=== PATIENT | male | born 1960 | race Caucasian/White ===

== ENCOUNTER 2016-11-18 09:59 | Day surgery (SDC) | payer BC ==
[2016-11-17 12:26] VITALS: BMI 31.6
[2016-11-18] MEDS ORDERED: ceFAZolin 2 GRAM PREMIX BAG IVPB ONE (11:00)
[2016-11-18] MEDS ORDERED: PROPOFOL 20 ML ONE ×4 (11:35)
[2016-11-18] MEDS ORDERED: LIDOCAINE HCL/PF 1% SDV 5ML VIAL ONE (11:35)
[2016-11-18 12:36] VITALS: TEMP 98.1
[2016-11-18 13:55] VITALS: BP 128/66; PULSE 58
--- NOTE | 2016-11-21 13:52 | PATH ---
Surgical Pathology Report Patient Name: LITTLE SPRINGER [facility] Rec. #: [id number] /Age/Gender: 1960 (Age: 56) / M Account: [id number] Location: U-ENDOSCOPY Taken: 11/18/2016 Received: 11/18/2016 Reported: 11/21/2016 Physicians: Gunnar Wei M.D. Specimen(s) Received A: BX OF FUNDUS & BODY B: BX ANTRUM C: BX DISTAL ESOPHAGUS D: BX RIGHT COLON POLYP E: BX DESCENDING COLON POLYP F: BX SIGMOID COLON POLYP Clinical History Anemia, screening Gastritis, duodenal ulcer, diverticulosis, lipoma transverse colon, colon polyp Final Diagnosis A. STOMACH, FUNDUS AND BODY, BIOPSY: GASTRIC OXYNTIC MUCOSA WITH FOCALLY ACTIVE MODERATE CHRONIC GASTRITIS. IMMUNOSTAIN FOR H. PYLORI IS POSITIVE FOR ORGANISMS (RARE ORGANISMS). B. STOMACH, ANTRUM, POLYP, BIOPSY: POLYPOID FRAGMENT OF GASTRIC ANTRAL MUCOSA WITH ACTIVE MARKED CHRONIC GASTRITIS AND HYPERPLASTIC CHANGE CONSISTENT WITH HYPERPLASTIC POLYP. NEGATIVE FOR DYSPLASIA. IMMUNOSTAIN FOR H. PYLORI IS POSITIVE FOR ORGANISMS (SCATTERED ORGANISMS). C. ESOPHAGUS, DISTAL, BIOPSY: SQUAMOUS EPITHELIUM WITH CHRONIC INFLAMMATION AND REFLUX TYPE CHANGES NO COLUMNAR EPITHELIUM PRESENT (NO INTESTINAL METAPLASIA/FERNÁNDEZ'S ESOPHAGUS IDENTIFIED). D. COLON, RIGHT, POLYP, BIOPSY: CONSISTENT WITH INFLAMMATORY/POSTINFLAMMATORY TYPE POLYP. E. COLON, DESCENDING, POLYP, BIOPSY: FRAGMENTS OF TUBULAR ADENOMA. F. COLON, SIGMOID, POLYP, BIOPSY: HYPERPLASTIC POLYP. Electronically Signed Travis Mistry M.D. Gross Description A. Received in formalin, labeled "biopsy fundus/body" are 4 garcia, irregular portions of soft tissue ranging from 0.1-0.3 cm in greatest dimension. The specimens are submitted in toto in one cassette. B. Received in formalin, labeled "biopsy antrum" is a garcia, irregular portion of soft tissue measuring 0.3 cm in greatest dimension. The specimen is submitted in toto in one cassette. C. Received in formalin, labeled "biopsy distal esophagus" is a garcia, irregular portion of soft tissue measuring 0.4 cm in greatest dimension. The specimen is submitted in toto in one cassette. D. Received in formalin, labeled "biopsy right colon polyp" are 2 garcia, irregular portions of soft tissue measuring 0.1 and 0.2 cm in greatest dimension. The specimens are submitted in toto in one cassette. E. Received in formalin, labeled "biopsy descending colon polyps" are 2 garcia, irregular portions of soft tissue averaging 0.4 cm in greatest dimension. The specimens are submitted in toto in one cassette. F. Received in formalin, labeled "biopsy sigmoid colon polyp" is a garcia, irregular portion of soft tissue measuring 0.3 cm in greatest dimension. The specimen is submitted in toto in one cassette. 11/18/2016 [facility]11/18/2016
== END 2016-11-18 13:50 | disposition home or self-care (01) ==
LOC: JASU-ENDO 09:59
PROVIDERS: ATTEND Internal Medicine Gastroenterology
PROC: 0DBN8ZX Excision of Sigmoid Colon, Via Natural or Artificial Opening Endoscopic, Diagnostic (ICD-10-PCS; 2016-11-18)
PROC: 0DBK8ZX Excision of Ascending Colon, Via Natural or Artificial Opening Endoscopic, Diagnostic (ICD-10-PCS; 2016-11-18)
PROC: 0DB68ZX Excision of Stomach, Via Natural or Artificial Opening Endoscopic, Diagnostic (ICD-10-PCS; 2016-11-18)
PROC: 0DBM8ZX Excision of Descending Colon, Via Natural or Artificial Opening Endoscopic, Diagnostic (ICD-10-PCS; principal; 2016-11-18 11:00)
DX: Z12.11 Encounter for screening for malignant neoplasm of colon (principal); D12.4 Benign neoplasm of descending colon; D12.2 Benign neoplasm of ascending colon; D12.5 Benign neoplasm of sigmoid colon; D17.5 Benign lipomatous neoplasm of intra-abdominal organs; K57.30 Diverticulosis of large intestine without perforation or abscess without bleeding; D64.9 Anemia, unspecified; K26.9 Duodenal ulcer, unspecified as acute or chronic, without hemorrhage or perforation; K25.9 Gastric ulcer, unspecified as acute or chronic, without hemorrhage or perforation; K31.7 Polyp of stomach and duodenum; K29.70 Gastritis, unspecified, without bleeding
CPT/HCPCS: 88305-TC; 88342-TC